=== PATIENT | male | born 1990 | race Caucasian/White ===

== ENCOUNTER 2019-08-30 13:07 | Emergency (ER) | payer BC, SELFPAY ==
[2019-08-30 13:55] VITALS: BP 150/85; PULSE 78; RESP 18; TEMP 36.6; O2SAT 100; BMI 24.5
--- NOTE | 2019-08-30 14:15 | HMH.EDUTC ---
[facility] [place] Clinical Impression: Fever Qualifiers: Fever type: unspecified Qualified Code(s): R50.9 - Fever, unspecified Disposition: Home, Self-Care Condition on Discharge: Good Instructions: Preventing the Spread of Coronavirus Discharge Instructions Additional Instructions: Self Quarantine until your covid test results are back. Referrals: Provider,Referral, [Primary Care Provider] - Forms: Work/School Release Time of Disposition: 14:18 Medical Decision Making - Medical Records Medical records reviewed: No: I reviewed the patient's medical records. - Basilio Inquiry Pt receiving controlled substance: No Vital Signs: 08/30/19 13:55 08/30/19 14:21 Temperature 97.8 F 97.8 F Temperature Source Oral Pulse Rate 78 Pulse Rate [Left Brachial] 78 Respiratory Rate 18 18 Blood Pressure 150/85 H Blood Pressure [Left Arm] 150/85 H Blood Pressure Mean [Left Arm] 106 Blood Pressure Source [Left Arm] Automatic Cuff Blood Pressure Position [Left Arm] Sitting 02 Sat by Pulse Oximetry 100 Oxygen Delivery Method Room Air Orders (Tests/Meds): ORDERS Category Date Time Status SARS-CoV-2, [facility] Stat Lab 08/30/19 14:08 Received [facility] [place] - General Stated complaint: COVID Test Time Seen by Provider: 08/30/19 13:55 Mode of Arrival: Ambulatory Source of Information: Patient Limitations: No Limitations Description of Symptoms (Recalled from Triage Doc. by RN): PATIENT STATES HE HAS HAD A SLIGHT DRY COUGH AND HAD ELEVATED TEMP WHEN CHECKED AT WORK. HIS WORK IS REQUESTING A COVID-19 TEST HEENT Symptoms (Recalled from RN notes): No Resp Symptoms (Recalled from RN notes): Yes Skin Symptoms (Recalled from RN notes): No MS Symptoms (Recalled from RN notes): No Functional Status (Recalled from RN notes): WNL - History of Present Illness Provider Complaint: When he tried to go to work this morning his temperature was noted to be slightly elevated, so he was told to come here for testing for COVID-19. He denies any complaints and states that he feels fine. - Related Data Previous Rx's Medication Instructions Recorded Hydrocodone/Acetaminophen [[place] 1 tab PO Q4H PRN 3 Days #10 tab 11/02/18 7.5-325 Tablet] Allergies Allergy/AdvReac Type Severity Reaction Status Date / Time No Known Allergies Allergy Verified 11/02/18 10:56 - Worker's Comp Is this a Worker's Comp case?: No H History - Hepatitis A Screen Drug use history?: No High risk sexual behaviors?: No History of sexually transmitted infection?: No Currently employed?: No Childcare worker?: No Do you have indoor plumbing?: Yes Do you have electricity?: Yes Attestation statement:: This patient has been screened for Hepatitis A risk factors. I have reviewed the patient's past medical history: Yes - Social History Alcohol Intake: current Occupational Status: other ROS Obtained: Yes All systems reviewed & no additional complaints - Constitutional Constitutional: Denies chills, Reports fever(s), Denies poor appetite, Denies malaise - Eyes Eyes: Denies blurry vision, Denies change in vision, Denies eye discharge - ENT Ears, Nose, Mouth, and Throat: Denies dizziness, Denies otalgia, Denies sore throat - Cardiovascular Cardiovascular: Denies chest pain - Respiratory Respiratory: No chest congestion, No cough, No dyspnea, No coughing up blood, No stridor, No wheezing - Gastrointestinal Gastrointestingal: Denies: abdominal pain, diarrhea, nausea, vomiting - Genitourinary Male Genitourinary: Denies difficulty urinating Physical Exam - General General appearance: alert, in no apparent distress - Head Head exam: atraumatic, normocephalic, normal inspection - Eye Eye exam: Present: normal appearance, PERRL, EOMI - ENT ENT exam: Present: normal exam, normal oropharynx, mucous membranes moist, TM's normal bilaterally, normal external ear exam - Neck Neck exam: Present: normal inspection, ful
[2019-08-30 14:21] VITALS: BP 150/85; PULSE 78; RESP 18; TEMP 36.6; O2SAT 100
[2019-09-01 09:28] LABS: Covid-19 Nasal PCR Sendout Lex NOT DETECTED
== END 2019-08-30 14:25 | disposition home or self-care (01) ==
PROVIDERS: Emergency Provider Nurse Practitioner Family
DX: R05 Cough (principal); R50.9 Fever, unspecified
CPT/HCPCS: 99201; U0004